=== PATIENT | male | born 1985 | race African-American/Black ===

== ENCOUNTER 2017-04-05 17:31 | Emergency (ER) | payer MEDICARE ==
[~2017-04-05] VITALS: Ht 172.7 cm; Wt 131.5 kg
--- NOTE | ~2017-04-05 | EKG ---
PATIENT: GIBSON ANG UNIT #: [id number] Ventricular Rate: 100 BPM Atrial Rate: 100 BPM P-R Interval: 222 ms QRS Duration: 98 ms Q-T Interval: 354 ms QTC Calculation(Bezet): 456 ms P Castle: 41 degrees Calculated R Castle: 22 degrees Calculated T Castle: 99 degrees Diagnosis Line: Sinus rhythm with 1st degree A-V block Diagnosis Line: Possible Left atrial enlargement Diagnosis Line: T wave abnormality, consider lateral ischemia Diagnosis Line: Abnormal ECG Diagnosis Line: When compared with ECG of 15-JUL-2015 08:38, Diagnosis Line: Criteria for Inferior infarct are no longer Diagnosis Line: Present Diagnosis Line: T wave inversion now evident in Lateral leads Diagnosis Line: Confirmed by ADEOLA FREDERICK MD ([id number]) on Diagnosis Line: 04/07/2017 11:30:21 AM INTERPRETING MD: OTONIEL SHAY
--- NOTE | ~2017-04-05 | CR72 ---
[facility]. [facility] A Service of [facility] & [facility] RADIOLOGY TEXT RESULTS PATIENT: GIBSON ANG SR LOCATION: SED : 81 UNIT #: [id number] AGE: [address]: Kath Soria MD SEX: M ORDER DR: [id number] [place] [id number] E MR#: [id number] Acc #: [id number] NAME: GIBSON ANG, : 1985 SEX: M STUDY DATE/TIME: 04/05/2017 19:12 UNIT: SED ROOM: STUDY DESCRIPTION: CR Chest Single View Portable Attending Physician: Paco Murray M.D. Ordering Physician: Paco Murray M.D. Primary Care Physician: Bubba Rodriguez Jr., M.D. MEDICAL IMAGING REPORT This report is preliminary unless electronic signature is present. EXAM Portable chest. HISTORY Shortness of air, chest pain and cough 2 days. FINDINGS Small focal patchy infiltrate in the lateral right upper lung probably in the right upper lobe is new compared to 01/13/2017. Considerations include focal pneumonia. Correlation to patient history and symptoms is recommended and short-term followup chest x-ray is suggested. Stable cardiac enlargement. Left subclavian pacer leads extend into the right atrium and right ventricle. Limited evaluation of the left base due to under-penetration. Dictated by... Aaron Sadler M.D. THIS IS AN ELECTRONICALLY VERIFIED REPORT Aaron Sadler M.D. at 04/06/2017 11:36 PM DFL/pearl TD: 04/06/2017 08:51 JOB #: [id number] MEDICAL IMAGING REPORT Page 1 of 1
[~2017-04-05 17:31] MED LIST: ALDACTONE25 MG PO; AMOXICILLIN875 MG PO; BUMEX2 MG PO; COREG PO; COUMADIN5 MG PO; HYDROCODONE/APA1 T16 PO; LISINOPRIL PO; METFORMIN PO; MIRALAX17 GM PO; NITROSTAT0.4 MG SL; NORFLEX100 M1 PO; PEPCID PO; ST. JOSEPH ASPI81 M3 PO; TYLENOL #3 PO
[2017-04-05 18:45] LABS: POC - CKMB 1.9 ng/mL (0.0-7.9); POC - MYOGLOBIN 89.1 ng/mL (0.0-169.0); POC - TROPONIN <0.05 ng/mL (<=0.05)
[2017-04-05 18:48] LABS: BASOPHIL# 0.1 X10e3 (0-0.3); BASOPHIL% 1.1 % (0-2.5); EOSINOPHIL# 0.2 X10e3 (0-0.7); EOSINOPHIL% 2.1 % (0.0-7.0); HEMATOCRIT 45.5 % (38.0-50.0); HEMOGLOBIN 15.4 gm/dL (13.0-16.0); LYMPHOCYTE# 2.6 X10e3 (1.0-3.5); LYMPHOCYTE% 31.2 % (17.0-45.0); MEAN CELL VOLUME 81.7 FL (83-96); MEAN CORPUSCULAR HEMOGLOBIN 27.6 PG (28-34); MEAN CORPUSCULAR HGB CONC 33.8 g/dL (30-36); MEAN PLATELET VOLUME 8.6 FL (6.5-11.5); MONOCYTE# 1.1 X10e3 (0-1.0); MONOCYTE% 13.5 % (3.0-12.0); NEUTROPHIL# 4.3 X10e3 (1.5-7.1); NEUTROPHIL% 52.1 % (40-75); PLATELET COUNT 218 X10e3 (140-420); RED BLOOD COUNT 5.58 X10e (3.90-5.60); RED CELL DISTRIBUTION WIDTH 14.1 % (11.0-15.5); WHITE BLOOD COUNT 8.3 X10e3 (4.0-10.5)
[2017-04-05 18:49] LABS: DIFF IND NO
[2017-04-05 18:58] LABS: INR 1.5; PROTHROMBIN TIME (PATIENT) 17.4 SECONDS (9.5-12.4)
[2017-04-05 19:05] LABS: POC - CKMB <1.0 ng/mL (0.0-7.9); POC - MYOGLOBIN 52.5 ng/mL (0.0-169.0); POC - TROPONIN <0.05 ng/mL (<=0.05)
[2017-04-05 19:05] LABS: PARTIAL THROMBOPLASTIN TIME 22.1 SECONDS (25.6-38.1)
[2017-04-05 19:06] LABS: ALBUMIN SERUM 3.8 g/dL (3.5-5.0); BILIRUBIN, DIRECT 0.1 mg/dL (0.0-0.2); BILIRUBIN,INDIRECT 0.6 mg/dL (0.0-0.9); BILIRUBIN,TOTAL 0.7 mg/dL (0.2-2.0); BUN/CREATININE RATIO 12.3; CALCIUM SERUM 8.8 mg/dL (8.4-10.2); CREATININE SERUM 1.3 mg/dL (0.6-1.4); GLOM FILT RATE Estimated 83.1 mL/min (>60); PROTEIN TOTAL SERUM 7.2 g/dL (6.0-8.3)
== END 2017-04-05 20:18 | disposition home or self-care (01) ==
LOC: SED 17:31
PROVIDERS: Emergency Medicine
DX: J18.9 Pneumonia, unspecified organism (principal); K21.9 Gastro-esophageal reflux disease without esophagitis; E78.5 Hyperlipidemia, unspecified; Z90.49 Acquired absence of other specified parts of digestive tract; I10 Essential (primary) hypertension; I42.9 Cardiomyopathy, unspecified; Z95.810 Presence of automatic (implantable) cardiac defibrillator; Z87.891 Personal history of nicotine dependence; Z79.899 Other long term (current) drug therapy
CPT/HCPCS: 36415; 71010; 80048; 80076; 82553; 83605; 83874; 83880; 84484; 85025; 85610; 85730; 93005; 94640; 96361; 96374; 96375; 99285; J1940; J2930